=== PATIENT | male | born 1930 | race Caucasian/White ===

== ENCOUNTER 2016-12-06 18:58 | Inpatient (IN) | payer MEDICARE, OTHER ==
--- NOTE | ~2016-12-06 | DS ---
Discharge Summary [facility] [address] [facility] [place]. [address] NAME: JOSESITO ROCK SR : 31 STATUS : ADM IN PAT#: [id number] AGE: 86 ADM/REG DATE : 12/06/16 MR#: [id number] REPORT SERV DATE: 12/11/16 DICTATED BY: KATY JEFFERS. DATE: 12/11/16 REPORT STATUS : Draft TRANSCRIBED BY: GIANLUCA DATE: 12/11/16 ADMISSION DATE: 12/06/2016 DISCHARGE DATE: TREE INSPECTOR: Leo Fuentes M.D. FINAL DIAGNOSES: Left lower extremity cellulitis, improving; paroxysmal atrial fibrillation status post rapid; coronary artery disease with history of myocardial infarction; chronic systolic congestive heart failure; chronic obstructive pulmonary disease; diabetes with neuropathy; status post acute kidney injury on chronic kidney disease 3; possible gastroesophageal reflux disease; morbid obesity; history of prostate cancer, status post radiation therapy; hyponatremia. HOSPITAL COURSE: Please refer to my discharge summary done yesterday. The patient was supposed to be discharged, however, he was found to be very weak. We got PT involved and they recommended [facility], so we will be transferring the patient to [facility] today. He is going to be continuing the same medications that was dictated yesterday except for the metoprolol-XL which will be increased from 50 to 100. The patient will follow up with the [facility] doctor, then follow up with Dr. Bart Macario after rehab discharge and follow up with Dr. Fuentes in a month. This has been explained to the patient and he agreed and understood the plan. DICTATED BY: West Beauchamp/GIANLUCA Katy Jeffers M.D. / [id number] CC: West Beauchamp M.D.
--- NOTE | ~2016-12-06 | DS ---
Discharge Summary [facility] [address] [place]. [address] NAME: JOSESITO ROCK SR : 31 STATUS : ADM [facility]#: [id number] AGE: 86 ADM/REG DATE : 12/06/16 MR#: [id number] REPORT SERV DATE: 12/11/16 DICTATED BY: KATY JEFFERS DATE: 12/10/16 REPORT STATUS : Draft TRANSCRIBED BY: MODStephanie DATE: 12/10/16 ADMISSION DATE: 12/06/2016 DISCHARGE DATE: CONSULTING PHYSICIAN: Leo Fuentes M.D. for Cardiology. FINAL DIAGNOSES: 1. Left lower extremity cellulitis, improving. 2. Paroxysmal atrial fibrillation, status post rapid. 3. Coronary artery disease with history of myocardial infarction. 4. Chronic systolic congestive heart failure. 5. Chronic obstructive pulmonary disease. 6. Diabetes with neuropathy. 7. Status post acute kidney injury on chronic kidney disease III. 8. Possible gastroesophageal reflux disease. 9. Morbid obesity. 10.History of prostate cancer, status post radiation therapy. 11.Hyponatremia. DIAGNOSTIC EXAM: Ultrasound showing no evidence of DVT in the left lower extremity. Chest x ray showing bibasilar scarring or atelectasis, right greater than left, similar in appearance on 02/28/2016. CAT scan of the abdomen and pelvis showing no acute abdominal or pelvic pathology. No imaging explanation for reported abdominal pain, nausea, and vomiting. Simple bilateral renal cysts as well as indeterminate small 7 mm hyperdense nodules, mid and lower pole, left kidney. Extensive spondylitic changes, lumbar spine. Echocardiogram showing grossly normal right ventricular chamber size and systolic function, EF of 50% to 55%, mild diastolic dysfunction, grossly normal right ventricular chamber size and systolic function, no significant valvular regurgitation or stenosis. HOSPITAL COURSE: Please refer to the H and P done by Dr. Newby dated on 12/06/2016. Briefly, this is an 86-year-old male on 3 liters of oxygen for COPD, type 2 diabetes, CAD, paroxysmal atrial fibrillation, chronic systolic congestive heart failure with a previous EF of 45% who came in with left leg redness, swelling, nausea, vomiting, and abdominal pain. The patient has been taking care of his who is now in hospice and has been neglecting his body. He noted some swelling in the left lower extremity with erythema, redness, and warmth, which got worse. He also admitted to some abdominal pain and cough productive of phlegm. The patient went to the emergency room, the above tests were done, and he was found to have left lower extremity cellulitis. He was started on Ancef and he got improvement of the lower extremity. However, he was also found with an AUBREY and had creatinine of 2.36. We stopped the Lasix, hydrated him, improved his creatinine to 1.24. Meanwhile, he went to a transient rapid AFib and he was asymptomatic with this. After four hours, he converted back to normal sinus rhythm. A repeat echo showed an improvement of the EF. We got Cardiology involved and they decided that it is better for him to start anticoagulation now as he might be having asymptomatic paroxysmal AFib. The patient had some swelling since we stopped the Lasix. We restarted that one and he seems to be doing well. Cardiology cleared the patient for discharge. We will now be discharging this patient with the above diagnosis. He will Discharge Summary [address] [address] NAME: JOSESITO ROCK : 31 STATUS : ADM IN PAT#: [id number] AGE: 86 ADM/REG DATE : 12/06/16 MR#: [id number] REPORT SERV DATE: 12/11/16 DICTATED BY: KATY JEFFERS DATE: 12/10/16 REPORT STATUS : Draft TRANSCRIBED BY: GIANLUCA DATE: 12/10/[address] Bart Macario in a week's time. Follow up with Dr. Leo Fuentes in a month's time, and the patient will be arranged for home health. He will be on the following medications: Aspirin 81 mg a day, Duricef 500 mg twice a day for five more days, Lasix 40 mg a day, multivitamin once a day, Metoprolol XL 50 mg a day, Pravachol 80 mg a day, Metamucil one packet a day, Xarelto 15 mg at bedtime, Bydureon 2 mg every Mondays, metformin 500 mg twice a day, Symbicort two puffs twice a day, potassium 20 mEq a day, and DuoNeb four times a day p.r.n. I will give him a prescription for Protonix 40 mg once a day and Maalox 30 mL p.o. q.8 p.r.n. heartburn as this seems to help with his abdominal pain. This has been explained to the patient in front of the son, and they agreed and understood the plan. DICTATED BY: West Beauchamp/GIANLUCA Katy Jeffers M.D. / [id number] CC: West Beauchamp M.D.
--- NOTE | ~2016-12-06 | HP ---
History And Physical [facility] [address] [facility] [place]. [address] NAME: JOSESITO BENNETT SR : 31 STATUS : ADM IN [facility]#: [id number] AGE: 86 ADM/REG DATE : 12/06/16 MR#: [id number] REPORT SERV DATE: 12/07/16 DICTATED BY: BETHANY STEWARD DATE: 12/06/16 REPORT STATUS : Draft TRANSCRIBED BY: MODStephanie DATE: 12/06/16 DATE OF ADMISSION: 12/06/2016 POINT OF ENTRY: [facility] Emergency Department Primary care physician is Dr. Bart Macario. PRIMARY RECONCILER: Formerly, Dr. Heller. 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 CHIEF COMPLAINT: Left leg pain and left leg swelling, right leg pain, abdominal pain, nausea, vomiting. HISTORY OF PRESENT ILLNESS: Mr. Bennett is an 86-year-old gentleman with a history of COPD on 3 L nocturnal oxygen, dmj-rsgblqz-lxirdqmll diabetes mellitus type 2, coronary artery disease, chronic systolic congestive heart failure, and other medical comorbidities, who presents to the emergency department today with multiple complaints including left leg redness and swelling, right leg pain, nausea, vomiting, abdominal pain, shortness of breath. The patient states that for the past four to five days, he has noted worsening swelling of his left lower extremity with associated erythema, redness, and warmth. He denies any pain in that leg. He states he chronically has some swelling in the left leg, but it has definitely worsened. The patient also reports a few-week history of right lower extremity pain, primarily located in the posterior upper thigh region, constant in nature, but worse with exertion and straight leg raise. Of note, the patient does have a history of diabetic neuropathy. The patient reports a two-day history of bilateral lower quadrant abdominal pain with a few episodes of nausea and vomiting, but denies any fevers, night sweats, chills. He also reports some shortness of breath with associated cough and increased sputum production over his baseline, but again denies any fevers, night sweats, chills, chest pain, or wheezing. Initial evaluation in the emergency department notable for stable vital signs. He is afebrile. White count of 20.7 with 5% bands. BUN and creatinine are mildly elevated above his baseline. Left lower extremity Doppler was negative for DVT. The patient was subsequently placed on some antibiotics and admitted to the Hospitalist Service. REVIEW OF SYSTEMS: Comprehensive system otherwise negative unless listed in history of present illness. PREVIOUS MEDICAL HISTORY: 1. Chronic systolic congestive heart failure. Ejection 45%. 2. Paroxysmal atrial fibrillation. 3. History of DVT. History And Physical [address] [address] NAME: JOSESITO BENNETT SR : 31 STATUS : ADM IN PAT#: [id number] AGE: 86 ADM/REG DATE : 12/06/16 MR#: [id number] REPORT SERV DATE: 12/07/16 DICTATED BY: BETHANY STEWARD DATE: 12/06/16 REPORT STATUS : Draft TRANSCRIBED BY: GIANLUCA DATE: 12/06/16 4. Chronic kidney stage 3, baseline creatinine approximately 1.2 to 1.4. 5. COPD on 3 L nocturnal oxygen. 6. Aak-jcfgbto-bgkfkmzfy diabetes mellitus type 2. 7. Morbid obesity. 8. History of prostate cancer, status post radiation therapy. 9. Hypertension. 10.Hyperlipidemia. 11.History of coronary artery disease with prior myocardial infarction. 12.Diabetic neuropathy. SURGICAL HISTORY: None. ALLERGIES: NO KNOWN DRUG ALLERGIES. HOME MEDICATIONS: Pending at the time of dictation. SOCIAL HISTORY: He is a former smoker, quit greater than 40 years ago. Denies any alcohol or illicits. FAMILY HISTORY: Mother of complications of childbirth. Father with coronary artery disease. Siblings with lung cancer and COPD. LABS AND IMAGIN. White count is 20.7, hemoglobin is 13.2, hematocrit is 39.3, platelet count a 104 with 5% bands. 2. Sodium 134, potassium 5.0, chloride 98, carbon dioxide 29, BUN 58, creatinine 1.96, glucose is 106, calcium is 10.3, protein is 7.8. Albumin is 3.6, bilirubin is 0.8. ALT 25, AST 26, alkaline phosphatase is 66. 3. Lipase is 135. 4. Lactic acid is 1.3. 5. Left lower extremity Doppler per mechanical tech report shows no DVT. PHYSICAL EXAMINATION: VITAL SIGNS: Temperature is 98.3 Fahrenheit, pulse is 91, respirations 16, saturating 94% on room air, blood pressure 136/58, on recheck, pulse is 103, blood pressure 139/64. GENERAL: The patient is awake, alert, in no acute distress. Resting comfortably in bed. He is a morbidly obese appearing male. Son is at bedside. HEENT: Atraumatic and normocephalic. Moist mucous membranes. Pupils are equal, round, and reactive to light and accommodation. Extraocular eye movements intact. No scleral icterus. NECK: No jugular venous distention. No carotid bruits. CARDIAC: Regular rate and rhythm. No murmurs, rubs, or gallops. Normal S1 and S2. LUNGS: Decreased breath sounds in the bases with occasional inspiratory wheeze or rale appreciated. ABDOMEN: Obese, soft, tender to palpation in bilateral lower quadrants. No rebound, guarding, or rigidity. EXTREMITIES: Left lower extremity has gotten 2 to 3+ lower extremity edema with erythema stretching from the forefoot up to the infrapatellar region. It is warm to the touch, but History And Physical [address] [place]. [address] NAME: JOSESITO BENNETT : 31 STATUS : ADM IN [facility]#: [id number] AGE: 86 ADM/REG DATE : 12/06/16 MR#: [id number] REPORT SERV DATE: 12/07/16 DICTATED BY: BETHANY STEWARD DATE: 12/06/16 REPORT STATUS : Draft TRANSCRIBED BY: GIANLUCA DATE: 12/06/16 not painful, no palpable fluid collection or evidence of purulent drainage. Right lower extremity has trace lower extremity edema, it is warm well perfused. The patient does have pain in the posterior upper thigh region with straight leg raise. SKIN: Warm and dry except for noted above. PSYCH: Affect appropriate. NEURO: Alert and oriented x3. Cranial nerves II through XII grossly intact. Speech is normal. Gait not assessed. ASSESSMENT AND PLAN: Mr. Bennett is an 86-year-old gentleman with multiple complaints. Problem list: 1. Left lower extremity cellulitis. 2. Abdominal pain, nausea, and vomiting. 3. Leukocytosis. 4. Acute kidney injury on chronic kidney disease stage 3. 5. Shortness of breath and sputum production. 6. Exe-yvdqgsw-yvqdrurts diabetes mellitus type 2. 7. History of congestive heart failure. 8. History of coronary artery disease. PLAN: 1. Left lower extremity cellulitis. We will place the patient on IV cefazolin his lower extremity Doppler is negative. We will elevate the leg. 2. Abdominal pain, nausea, and vomiting. Lipase and CMP are unremarkable. However, given his leukocytosis as well as reports of pain, we will check a CT scan of the abdomen and pelvis. 3. Shortness of breath, cough, and sputum production. We will check a chest x-ray as well as a BNP level. 4. Leukocytosis. Identifiable etiology at this time is cellulitis, however, the patient has multiple other possibilities. We will workup with urinalysis, blood cultures, procalcitonin, CT of the abdomen and pelvis as well as chest x-ray. All which had not been done in the ER prior to my assuming care of the patient. 5. History of congestive heart failure. The patient does report some shortness of breath; however, he does appear fairly euvolemic on exam. We will check a chest x-ray and a BNP level. 6. Acute kidney injury on chronic kidney stage 3. Very gentle IV fluid hydration. Given history of congestive heart failure. We will avoid nephrotoxic medications. Checking urinalysis and urine as well as urine lytes. All of which are pending at time of dictation. 7. History of coronary artery disease. Given reports of nausea, vomiting, abdominal pain, and shortness of breath, we will check an EKG as well as a set of cardiac enzymes. 8. Deep venous thrombosis prophylaxis. Heparin subcu. CODE STATUS: The patient wished to be full code. History And Physical [address] [address] NAME: JOSESITO BENNETT Henry PARRA : 31 STATUS : ADM IN [facility]#: [id number] AGE: 86 ADM/REG DATE : 12/06/16 MR#: [id number] REPORT SERV DATE: 12/07/16 DICTATED BY: BETHANY STEWARD DATE: 12/06/16 REPORT STATUS : Draft TRANSCRIBED BY: GIANLUCA DATE: 12/06/16 MIROSLAVA/GIANLUCA Bethany Steward MD / [id number] CC: MD Bart Green II, M.D.
[2016-12-06 17:09] LABS: BASOPHILS 0 %; BASOPHILS ABSOLUTE 0.01 10/3/uL (0.0-0.16); EOSINOPHILS 0 %; HEMATOCRIT 39.3 % (40.0-51.0); HEMOGLOBIN 13.2 g/dL (13.6-17.8); IMMATURE GRANULOCYTES 0.5 %; IMMATURE GRANULOCYTES ABSOLUTE 0.11 10/3/uL (0.0-0.11); LYMPHOCYTES 11.6 %; MEAN CORPUS HGB CONC 33.6 g/dL (32.0-36.0); MEAN CORPUSCULAR HEMOGLOB 32.7 pg (26.0-34.0); MEAN CORPUSCULAR VOLUME 97.3 fL (80-100); MEAN PLATELET VOLUME 11.5 fL (9.2-13.0); MONOCYTES 19.4 %; MONOCYTES ABSOLUTE 4.02 10/3/uL (0.21-1.20); NEUTROPHILS 68.5 %; NEUTROPHILS ABSOLUTE 14.14 10/3/uL (2.02-8.40); PLATELET COUNT 104 10/3/uL (150-400); RBC DISTRIBUTION WIDTH 14.1 % (12.0-16.0); RED CELL COUNT 4.04 10/6/uL (4.7-6.1)
[2016-12-06 17:10] LABS: WHITE BLOOD CELLS 20.7 10/3/uL (4.5-10.5)
[2016-12-06 17:12] LABS: MANUAL DIFF NO %
[2016-12-06 17:22] LABS: A/G RATIO 0.9 (0.7-1.9); ALBUMIN 3.6 G/DL (3.5-5.0); ALKALINE PHOSPHATASE 66 U/L (45-117); CALCIUM, SERUM 10.3 MG/DL (8.5-10.4); CHLORIDE, SERUM 98 MMOL/L (96-112); CO2 (CARBON DIOXIDE) 29 MMOL/L (24-34); GLUCOSE, SERUM 106 MG/DL (60-99); SGOT(AST) 26 U/L (5-40); SGPT(ALT) 25 U/L (5-65); TOTAL BILIRUBIN 0.8 MG/DL (0-1.2); TOTAL PROTEIN 7.8 G/DL (6.0-8.5)
[2016-12-06 17:23] LABS: BUN (BLOOD UREA NITROGEN) 58 MG/DL (6-23); CREATININE 1.96 MG/DL (0.70-1.30); GFR AFRICAN AMERICAN 35 ML/MIN (>=60); GFR NON AFRICAN AMERICAN 30 ML/MIN (>=60); GLOBULIN 4.2 G/DL (2.5-4.1); SODIUM, SERUM 134 MMOL/L (135-148)
[2016-12-06 17:33] LABS: BAND NEUTROPHILS 5 %; ER DIFF TAT 0 Hrs 29 Mins; LYMPHOCYTES 11 %; LYMPHOCYTES ABSOLUTE (CALC) 2.28 10/3/uL (0.67-4.30); MONOCYTES 15 %; MONOCYTES ABSOLUTE (CALC) 3.11 10/3/uL (0.21-1.20); NEUTROPHILS ABSOLUTE (CALC) 15.32 10/3/uL (2.02-8.40); SEGMENTED NEUTROPHIL (0) 69 %; TOTAL NUCLEATED CELLS 100
[2016-12-06 17:34] LABS: PLATELET ESTIMATE SLT DEC (ADEQUATE); RBC MORPHOLOGY NORM (NORMAL)
[~2016-12-06 18:58] MED LIST: ALEVE220 MG PO; ASA5GR PO; ASABAYER PO; AUG875 PO; BLOOD PRESSURE RX PO; BYDUREON2 MG SQ; CEFT5 PO; COREG12 PO; FISH OIL1200 MG PO; FORTAMET500 MG PO; GLUCPH PO; IVVIBRA; KDUR20 PO; KLOR-CON M2020 MEQ PO; L40 PO; LISINOPRIL40 MG PO; MULTIVITAMIN PACK PO; NATURA2 OPH; NIASPAN500 PO; ORGAN-I NR200 MG PO; P10 PO; P20 PO; POTASSIUM CL PO; PRAVACHOL80 MG PO; PRIN20 PO; PROAIR HFA INH; PROVHFA INH; SYMBICORT 160/41 INH INH; VITAMIN D1000 UNI1 PO; VITAMIN D31000 UNIT PO; VITE1000 PO; XOPENEX HFA INH; [UNRECOGNIZED DRUG - OTHER] PO
[2016-12-06 19:38] LABS: ASCORBIC ACID (UR NOT ORDER) NEG (NEG); BILIRUBIN, URINE NEGATIVE (NEG); ER URINALYSIS TAT 0 Hrs 10 Mins; KETONE, URINE TRACE MG/DL (NEG); LEUKOCYTE ESTERASE(NOT OR TRACE (NEG); NITRITE (URINE) NEG (NEG); WBC (NOT ORDERED) (RFLEX) < 1 (0-5)
[2016-12-06] MEDS ORDERED: ASA5GR PO (19:40)
[2016-12-06] MEDS ORDERED: BYDUREON2 MG SQ (19:40)
[2016-12-06] MEDS ORDERED: FORTAMET500 MG PO (19:40)
[2016-12-06] MEDS ORDERED: L40 PO (19:40)
[2016-12-06] MEDS ORDERED: THERGRANM PO (19:40)
[2016-12-06] MEDS ORDERED: METPAKSF PO (19:41)
[2016-12-06] MEDS ORDERED: COREG12 PO (19:41)
[2016-12-06] MEDS ORDERED: SYMBICORT 160/41 INH INH (19:41)
[2016-12-06] MEDS ORDERED: DORYX100 MG PO (19:42)
[2016-12-06] MEDS ORDERED: KLOR-CON M2020 MEQ PO (19:42)
[2016-12-06] MEDS ORDERED: PRAVACHOL80 MG PO (19:42)
[2016-12-06] MEDS ORDERED: DUONEB INH (19:43)
[2016-12-06 20:17] LABS: TROPONIN I <0.02 NG/ML (<0.05)
[2016-12-06 20:26] LABS: B NATRIURETIC PEPTIDE (BNP) 37.7 PG/ML (< 100.0)
[2016-12-06 20:37] LABS: PROCALCITONIN 2.05 ng/mL (<0.5)
[2016-12-07 07:02] LABS: HEMOGLOBIN 11.1 g/dL (13.6-17.8); MEAN CORPUSCULAR HEMOGLOB 32.5 pg (26.0-34.0); MEAN CORPUSCULAR VOLUME 98.2 fL (80-100); MEAN PLATELET VOLUME 11.9 fL (9.2-13.0); PLATELET COUNT 87 10/3/uL (150-400); RBC DISTRIBUTION WIDTH 14.3 % (12.0-16.0); RED CELL COUNT 3.42 10/6/uL (4.7-6.1); WHITE BLOOD CELLS 15.7 10/3/uL (4.5-10.5)
[2016-12-07 07:06] LABS: HEMATOCRIT 33.6 % (40.0-51.0); MANUAL DIFF YES %
[2016-12-07 07:09] LABS: BUN (BLOOD UREA NITROGEN) 60 MG/DL (6-23); CALCIUM, SERUM 9.2 MG/DL (8.5-10.4); CHLORIDE, SERUM 100 MMOL/L (96-112); CO2 (CARBON DIOXIDE) 29 MMOL/L (24-34); CREATININE 2.36 MG/DL (0.70-1.30); GFR AFRICAN AMERICAN 28 ML/MIN (>=60); GFR NON AFRICAN AMERICAN 24 ML/MIN (>=60); GLUCOSE, SERUM 117 MG/DL (60-99); POTASSIUM, SERUM 4.9 MMOL/L (3.5-5.3); SODIUM, SERUM 137 MMOL/L (135-148)
[2016-12-07 07:46] LABS: BAND NEUTROPHILS 6 %; LYMPHOCYTES 14 %; MONOCYTES 25 %; MONOCYTES ABSOLUTE (CALC) 3.93 10/3/uL (0.21-1.20); NEUTROPHILS ABSOLUTE (CALC) 9.58 10/3/uL (2.02-8.40); SEGMENTED NEUTROPHIL (0) 55 %; TOTAL NUCLEATED CELLS 100
[2016-12-07 07:47] LABS: BURR CELLS 1+ (3-10/OIF) (0-2/OIF); PLATELET ESTIMATE DEC (ADEQUATE); POIKILOCYTOSIS 1+ (5-10/OIF) (0-5/OIF)
[2016-12-07 07:48] LABS: GIANT PLATELET RARE
[2016-12-07 08:29] LABS: GLYCOHEMOGLOBIN (HbA1c) 6.1 % (4.7-6.1)
[2016-12-08 05:54] LABS: HEMATOCRIT 34.2 % (40.0-51.0); HEMOGLOBIN 11.3 g/dL (13.6-17.8); MEAN CORPUSCULAR HEMOGLOB 32.6 pg (26.0-34.0); MEAN CORPUSCULAR VOLUME 98.6 fL (80-100); MEAN PLATELET VOLUME 11.4 fL (9.2-13.0); PLATELET COUNT 87 10/3/uL (150-400); RBC DISTRIBUTION WIDTH 13.9 % (12.0-16.0); RED CELL COUNT 3.47 10/6/uL (4.7-6.1); WHITE BLOOD CELLS 9.7 10/3/uL (4.5-10.5)
[2016-12-08 05:55] LABS: MANUAL DIFF YES %
[2016-12-08 05:57] LABS: CHLORIDE, SERUM 99 MMOL/L (96-112); CO2 (CARBON DIOXIDE) 28 MMOL/L (24-34); POTASSIUM, SERUM 4.5 MMOL/L (3.5-5.3); SODIUM, SERUM 133 MMOL/L (135-148)
[2016-12-08 06:00] LABS: BUN (BLOOD UREA NITROGEN) 48 MG/DL (6-23); CREATININE 1.56 MG/DL (0.70-1.30); GFR AFRICAN AMERICAN 46 ML/MIN (>=60); GFR NON AFRICAN AMERICAN 40 ML/MIN (>=60); GLUCOSE, SERUM 89 MG/DL (60-99)
[2016-12-08 06:13] LABS: BAND NEUTROPHILS 4 %; BASOPHILS 1 %; LYMPHOCYTES 11 %; LYMPHOCYTES ABSOLUTE (CALC) 1.07 10/3/uL (0.67-4.30); MONOCYTES 15 %; MONOCYTES ABSOLUTE (CALC) 1.46 10/3/uL (0.21-1.20); NEUTROPHILS ABSOLUTE (CALC) 7.08 10/3/uL (2.02-8.40); PLATELET ESTIMATE DEC (ADEQUATE); RBC MORPHOLOGY NORM (NORMAL); SEGMENTED NEUTROPHIL (0) 69 %; TOTAL NUCLEATED CELLS 100
[2016-12-09 06:14] LABS: CALCIUM, SERUM 9.8 MG/DL (8.5-10.4); CHLORIDE, SERUM 98 MMOL/L (96-112); CO2 (CARBON DIOXIDE) 32 MMOL/L (24-34); CREATININE 1.59 MG/DL (0.70-1.30); GFR AFRICAN AMERICAN 45 ML/MIN (>=60); GFR NON AFRICAN AMERICAN 39 ML/MIN (>=60); GLUCOSE, SERUM 95 MG/DL (60-99); SODIUM, SERUM 134 MMOL/L (135-148)
[2016-12-09 06:15] LABS: BUN (BLOOD UREA NITROGEN) 40 MG/DL (6-23)
[2016-12-10 06:10] LABS: BUN (BLOOD UREA NITROGEN) 30 MG/DL (6-23); CALCIUM, SERUM 9.7 MG/DL (8.5-10.4); CHLORIDE, SERUM 94 MMOL/L (96-112); CO2 (CARBON DIOXIDE) 32 MMOL/L (24-34); CREATININE 1.24 MG/DL (0.70-1.30); GFR AFRICAN AMERICAN 61 ML/MIN (>=60); GFR NON AFRICAN AMERICAN 53 ML/MIN (>=60); GLUCOSE, SERUM 102 MG/DL (60-99); POTASSIUM, SERUM 5.1 MMOL/L (3.5-5.3); SODIUM, SERUM 132 MMOL/L (135-148)
[2016-12-10] MEDS ORDERED: ASAB PO (08:53)
[2016-12-10] MEDS ORDERED: DURICEF (08:57)
[2016-12-10] MEDS ORDERED: BYDUREON2 MG (08:58)
[2016-12-10] MEDS ORDERED: TOPXL50 PO (08:59)
[2016-12-10] MEDS ORDERED: PROTONIX PO (08:59)
[2016-12-10] MEDS ORDERED: XARELTO15 MG PO (09:00)
[2016-12-10] MEDS ORDERED: MAALOX PO (09:02)
[2016-12-11 05:48] LABS: BUN (BLOOD UREA NITROGEN) 32 MG/DL (6-23); CALCIUM, SERUM 9.3 MG/DL (8.5-10.4); CHLORIDE, SERUM 93 MMOL/L (96-112); CO2 (CARBON DIOXIDE) 34 MMOL/L (24-34); CREATININE 1.32 MG/DL (0.70-1.30); GFR AFRICAN AMERICAN 57 ML/MIN (>=60); GFR NON AFRICAN AMERICAN 49 ML/MIN (>=60); GLUCOSE, SERUM 115 MG/DL (60-99); POTASSIUM, SERUM 4.6 MMOL/L (3.5-5.3); SODIUM, SERUM 132 MMOL/L (135-148)
== END 2016-12-11 15:57 | DRG 603 ==
LOC: ER 18:58 → 7NO 19:54
PROVIDERS: Internal Medicine; Nurse Practitioner
DX: L03.116 Cellulitis of left lower limb (principal); N17.9 Acute kidney failure, unspecified; E11.22 Type 2 diabetes mellitus with diabetic chronic kidney disease; I13.0 Hypertensive heart and chronic kidney disease with heart failure and stage 1 through stage 4 chronic kidney disease, or unspecified chronic kidney disease; I50.22 Chronic systolic (congestive) heart failure; N18.3 Chronic kidney disease, stage 3 (moderate); Z79.84 Long term (current) use of oral hypoglycemic drugs; J44.9 Chronic obstructive pulmonary disease, unspecified; Z99.81 Dependence on supplemental oxygen; I25.10 Atherosclerotic heart disease of native coronary artery without angina pectoris; I25.2 Old myocardial infarction; I48.0 Paroxysmal atrial fibrillation; E11.40 Type 2 diabetes mellitus with diabetic neuropathy, unspecified; E66.01 Morbid (severe) obesity due to excess calories
CPT/HCPCS: 71010; 74176; 80048; 80053; 81001; 82570; 82962; 83036; 83605; 83690; 83735; 83880; 83935; 84100; 84145; 84300; 84484; 85025; 87040; 87070; 87205; 87449; 93005; 93971; 94640; 97162-GP; 99285; A9270-GY; C8929; G8978-CL-GP; G8979-CJ-GP; J0456; J0690; J2405; J2543; J3370; Q9957